=== PATIENT | female | born 1950 | race Caucasian/White ===

== ENCOUNTER → 2021-05-30 | Outpatient (CLI) | payer MEDICARE, OTHER ==
[~2021-05-30] MED LIST: ASPIR 8181 MG PO; CITALOPRAM HBR40 MG PO; CRESTOR10 MG PO; GLUCOPHAGE850 MG PO; JARDIANCE10 MG PO; LEVOXYL112 MCG PO; MELATONIN5 MG PO; MULTI-VITAMIN1 EACH PO; NORCO 5-325 TA1 EACH PO; TEGRETOL200 MG PO; VALACYCLOVIR500 MG PO; VITAMIN D3125 MCG PO
== END ==
LOC: KOH-I 16:21
DX: R10.31 Right lower quadrant pain (principal); R14.3 Flatulence
CPT/HCPCS: 74018